=== PATIENT | male | born 1995 | race Caucasian/White ===

== ENCOUNTER 2020-06-16 05:28 | Day surgery (SDC) | payer OTHER ==
[2020-06-11 10:27] LABS: HEMATOCRIT 40.4 % (37.9-51.0); HEMOGLOBIN 14.5 g/dL (13.5-17.0); MEAN CORPUSCULAR HGB CONC 35.8 g/dL (32.0-36.0); MEAN CORPUSCULAR VOLUME 84 fl (80-97); PLATELET COUNT 182 10^3/uL (150-450); RED BLOOD COUNT 4.82 10^6/uL (4.35-5.55); RED CELL DISTRIBUTION WIDTH 13.5 % (11.5-14.0); WHITE BLOOD COUNT 4.6 10^3/uL (4.0-10.5)
[~2020-06-16 05:28] MED LIST: CEFAZOLIN SODIUM 2 GM in DEXTROSE 5%-WATER 100 ML IV PRN; LACTATED RINGERS 1000 ML IV PRN; LIDOCAINE 0.5% INJ-PF (5 MG/ML) 50 ML SDV SUBCUT PRN
[2020-06-16] MEDS ORDERED: CEFAZOLIN 2 GM/D5W RTU 2 GM/50 ML RTUPB IV ONE (06:13)
[2020-06-16] MEDS ORDERED: KETAMINE HCL INJ 500 MG/10 ML VIAL ONE (06:38)
[2020-06-16] MEDS ORDERED: FENTANYL CITRATE INJ/PF 250 MCG/5 ML AMPULE ONE (06:38)
[2020-06-16] MEDS ORDERED: PROPOFOL INJ 200 MG/20 ML VIAL IV ONE (06:40)
[2020-06-16] MEDS ORDERED: MIDAZOLAM 2 MG/2 ML INJ ONE (06:50)
[2020-06-16] MEDS ORDERED: BUPIVACAINE HCL 0.25 % INJ/PF (2.5 MG/1 ML) 30 ML VIAL ONE (07:38)
[2020-06-16] MEDS ORDERED: MEPERIDINE HCL/PF INJ 25 MG/1 ML DISP.SYRIN IV PRN (08:14)
[2020-06-16] MEDS ORDERED: PROMETHAZINE HCL INJ 25 MG/1 ML VIAL IV PRN ×2 (08:14)
[2020-06-16] MEDS ORDERED: DIPHENHYDRAMINE HCL 50 MG/ML VIAL IV PRN (08:14)
[2020-06-16] MEDS ORDERED: FENTANYL CITRATE INJ/PF 100 MCG/2 ML AMPUL IV PRN ×3 (08:14)
[2020-06-16] MEDS ORDERED: HYDROMORPHONE HCL INJ/PF 2 MG/ML AMPULE IV PRN (08:17)
[2020-06-16] MEDS ORDERED: OXYCODONE-ACETAMINOPHEN 5-325 MG TABLET PO PRN ×2 (10:03→10:07)
[2020-06-16] MEDS ORDERED: ONDANSETRON HCL INJ/PF 4 MG/2 ML SDV IV PRN (10:03)
--- NOTE | 2020-06-16 10:03 | Operative Report ---
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 Robotic-assisted laparoscopic urachal remnant excision 2. Umbilicoplasty 3. Incisional and piero-umbilical fascial blocks for post-operative pain relief Primary Surgeon: Darek Fletcher M.D. Secondary Surgeon: Israel Romo M.D. 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 After discussion of the risks, benefits and alternatives to the procedure including but not limited to bleeding, infection, injury to adjacent structures or organs systems, pain, recurrence, need for adjuvant treatment, rectal injury, ileus, small bowel obstruction, TX, CVA, DVT, PE and the patient elected to proceed with the above procedure. Description of Procedure: After satisfactory induction of general endotracheal anesthesia, the patient was placed in the dorsal lithotomy position and prepped and draped in the normal sterile fashion for robotic urachal excision. A pre-operative timeout was performedthe correct patient, site and procedure were identified. Pre-operative antibiotics with Ancef 2 grams were given within 30 minutes of the start time of the case, SCDs were on and functioning throughout the case. All pressure points were padded, all fire hazards were identified. First, a Verses needle was passed into the abdomen in the midline at the superior aspect of the umbilicus and the drop test was positive for intra- abdominal placement without injury to bowel, blood vessels and organs. The abdomen was then insufflated to 15 mm Hg pressure with an opening pressure of less than 6 mm Hg. An 18 Fr vigil catheter was placed into the bladder and the balloon was inflated with 10 mL of sterile water and placed to a gravity bag with return of clear yellow urine. The robotic trocars were then placed. The camera port was placed 8 cm above the umbilicus but less than 27 cm superior to the pubic symphysis. Two 8 mm ports were placed 8 cm laterally to the camera port on either side. A 12 mm staff physical therapy assistant port was then placed in the right lower abdomen 8 cm lateral to the right-hand port. The da Gilberto robot was then docked to the patient. The 0-degree camera lens was placed through the 12 mm camera port. Monopolar scissors were placed in the right hand with a fenestrated bipolar in the left hand. We then proceeded with urachal excision. First, the abdomen was inspected and there was no evidence of injury from trocar placement. The urachus and median umbilical ligaments were identified in midline. An incision was then made in the peritoneum through and lateral to the right median umbilical ligament and extended down to just lateral to the right inguinal ring. A similar incision was then made lateral to the left medial umbilical ligament and carried down to the pubic symphysis. Then attention was turned to dropping the bladder and the medial umbilical ligaments, which were transected below the umbilicusthe urachus itself was not transected and was left intact. Next, the peritoneum was dissected of the urachus circumferentially and this was carried all the way down to the dome of the bladder until the urachus was isolated from all the surrounding tissue. The bladder was filled with 350 mL of normal saline to help identify the detrusor. The detrusor muscle was then incised circumferentially around the urachus and the bladder mucosa was identified. As the patients pre-operative imaging noted a piero-umbilical cyst but no masses nor lesions adjacent to the bladder, the urachus was dissected off the bladder mucosa without entry into the bladder itself. A Hem-o-jamie clip was then placed on the distal urachus to prevent leakage of urachal contents into the abdomen. A 2-0 Stratafix V-loc suture was then placed into the bladder detrusor muscle as a holding stitch and the urachus was then transected just proximal to the bladder mucosa. The bladder was then inspected and it was noted that the entirety of the urachus had been disconnected from the bladder. Next, bladder closure was performed. The 2-0 V-loc suture was used to close the detrusor muscle in a running fashion. The piero-vesical fat and peritoneum was then closed with a 2-0 Vicryl suture for a second layer of bladder closure in a running fashion. The bladder was then filled up to 350 mL of normal saline and there was no evidence of leak. The urine was noted to be clear yellow. Attention was then turned to the proximal urachus. This was circumferentially dissected from the surrounding tissues up to the level of the umbilicus. The urachus was then placed in a specimen bag. The abdomen was re-inspected and it was noted that there was no evidence of active bleeding nor organ injury. The robot was undocked and the ports were removed under direct vision. Next, umbilicoplasty was performed in the manner of Ruma. An elliptical incision was made around the umbilicus and incised with a #15 blade. Bovie electrocautery was used to incise the fibrous attachments around the umbilicus until it was freed from the surrounding tissues. The specimen bag was then removed from the umbilical incision and then passed off for specimen. The fascia was then closed with interrupted 2-0 PDS suture. Umbilicoplasty was performed by placing 2-0 Vicryl subcuticular sutures which were tacked down to the fascia in midline. The skin was re-approximated with purse string 3-0 chromic sutures and skin glue was applied. The laparoscopic incisions were then sealed with skin glue and running 4-0 monocryl subcuticular sutures. This concluded the procedure and the patient was cleaned off, awoken from anesthesia and returned to PACU in stable condition having tolerated the entirety of the case without complication. Sponge, needle and instrument counts were correct x2. PREOPERATIVE DIAGNOSIS: Malformation of the Urachus POSTOPERATIVE DIAGNOSIS: Malformation of the Urachus OPERATION: see dictation SURGEON: DAREK FLETCHER ANESTHESIA: GA TISSUE REMOVED OR ALTERED: Urachus with umbilicus COMPLICATIONS: None ESTIMATED BLOOD LOSS: 25 mL INTRAOPERATIVE FINDINGS: see dictation PROCEDURE: See dictation
[2020-06-16] MEDS ORDERED: MORPHINE SULFATE 10 MG/ML INJ IV PRN (10:06)
[2020-06-16] MEDS ORDERED: ONDANSETRON HCL INJ/PF 4 MG/2 ML SDV ONE ×2 (10:19→14:10)
[2020-06-16] MEDS ORDERED: KETOROLAC TROMETHAMINE INJ/PF 30 MG/1 ML SDV ONE (10:26)
[2020-06-16] MEDS ORDERED: ACETAMINOPHEN 1,000 MG/100 ML RTUPB IV ONE ×2 (10:26→10:45)
[2020-06-16] MEDS ORDERED: KETOROLAC TROMETHAMINE INJ/PF 30 MG/1 ML SDV IV ONE (10:45)
[2020-06-16] MEDS ORDERED: OXYCODONE-ACETAMINOPHEN 5-325 MG TABLET ONE (11:08)
[2020-06-16 12:55] VITALS: BP 138/82
[2020-06-16] MEDS ORDERED: NEOSTIGMINE METHYLSULFATE 10 MG/10 ML VIAL ONE (14:10)
[2020-06-16] MEDS ORDERED: GLYCOPYRROLATE 1 MG/5 ML VIAL ONE (14:10)
[2020-06-16] MEDS ORDERED: ROCURONIUM BROMIDE INJ 50 MG/5 ML VIAL IV ONE ×2 (14:10→14:11)
== END 2020-06-16 12:45 | disposition home or self-care (01) ==
LOC: OROUT 05:28
PROVIDERS: ATTEND Urology
DX: Q64.4 Malformation of urachus (principal); Z03.818 Encounter for observation for suspected exposure to other biological agents ruled out
CPT/HCPCS: 49250; 49329; S2900; 36415; 85027; 860; 86850; 86900; 86901; 87635; 88305; C1758; C9803; J0131; J0690; J1885; J2250; J2405; J2704; J2710; J3010; J3490; J7060